=== PATIENT | male | born 1945 | race Asian ===

== ENCOUNTER 2020-01-08 09:42 | Emergency (ER) | payer OTHER ==
[~2020-01-08] VITALS: Ht 170.2 cm; Wt 72.6 kg
--- NOTE | 2020-01-08 09:56 | NUR ---
Patient brought in by jana for OK to book. No complaints at this time.
--- NOTE | 2020-01-08 09:56 | NUR ---
Patient to [facility] for evaluation. Side rails up.
[2020-01-08 09:57] VITALS: BP_SYST 155
--- NOTE | 2020-01-08 10:00 | NUR ---
ER Dr. Gunter at bedside examining patient.
[2020-01-08 10:03] VITALS: BP_SYST 155
--- NOTE | 2020-01-08 10:03 | NUR ---
Patient given written and verbal discharge instructions and verbalizes understanding. ER MD discussed with patient the results and treatment provided. Patient in stable condition. ID arm band removed. Patient educated on pain management and to follow up with PMD. Pain Scale 0/10. Opportunity for questions provided and answered. Medication side effect fact sheet provided.
== END 2020-01-08 10:03 ==
LOC: SED 09:42
DX: E11.9 Type 2 diabetes mellitus without complications (principal)
CPT/HCPCS: 99283